=== PATIENT | male | born 1990 | race Caucasian/White ===

== ENCOUNTER 2017-02-18 16:33 | Emergency (ER) | payer BC ==
[2017-02-18] MEDS ORDERED: KETOROLAC 30 MG/ML VIAL IVP ONE (16:57)
[2017-02-18] MEDS ORDERED: 0.9 % SODIUM CHLORIDE 1,000 ML BAG IV ONE (16:57)
[2017-02-18] MEDS ORDERED: ONDANSETRON HCL IV 4 MG/2 ML VIAL IVP ONE (17:00)
[2017-02-18] MEDS ORDERED: MORPHINE SULFATE 5 MG/ML PFS IVP ONE (17:00)
--- NOTE | 2017-02-18 17:03 | Emergency Department Record ---
History of Present Illness - General Chief Complaint: Back Pain/Injury Stated Complaint: BACK PAIN Time Seen by Provider: 02/18/17 16:56 Source: Patient Mode of Arrival: Ambulatory Limitations: No limitations - History of Present Illness Initial Comments: 26 yo male presents with right flank pain that is sharp. The pain started today. He has mild nausea. No fever. the pain started in the high right back and now radiates down toward the testicles. The testicles are not tender or swollen. No hematuria. No diarrhea. He is unable to find a position of comfort. The pain feels more internal. He denies a history of the same in the past. No other recent medical concerns. MD Complaint: Back pain Onset/Timin -: Month(s) Similar Symptoms Previously: Yes Place: Home Radiation: Groin Severity: Moderate Severity scale (1-10): 10 Quality: Sharp, Stabbing Consistency: Constant Improves With: None Worsens With: None Associated Symptoms: Denies other symptoms - Related Data Home Medications Medication Instructions Recorded Confirmed Last Taken No Home Med [NO HOME MEDS] 02/18/17 02/18/17 Unknown Allergies Allergy/AdvReac Type Severity Reaction Status Date / Time Unable to Assess Allergy Unverified 02/18/17 16:45 Travel Screening - Travel/Exposure Within Last 30 Days Have you traveled within the last 30 days?: No - Travel/Exposure Within Last Year Have you traveled outside the [place] in the last year?: No - Additonal Travel Details Have you been exposed to anyone with a communicable illness?: No - Travel Symptoms Symptom Screening: None Review of Systems Constitutional: Denies: Chills, Fever, Malaise, Weakness Eyes: Denies: Eye discharge ENT: Denies: Congestion, Throat pain Respiratory: Denies: Cough, Dyspnea, Hemoptysis, Stridor, Wheezes Cardiovascular: Denies: Chest pain, Syncope Endocrine: Denies: Fatigue Gastrointestinal: Reports: As per HPI, Abdominal pain, Nausea. Denies: Diarrhea , Hematemesis, Hematochezia, Melena, Vomiting Genitourinary: Reports: Testicular pain. Denies: Dysuria, Frequency, Hematuria , Incontinence, Testicular mass, Urgency Musculoskeletal: Reports: Back pain. Denies: Arthralgia, Joint swelling, Myalgia, Neck pain Skin: Denies: Bruising, Change in color, Rash Neurological: Denies: Confusion, Headache Psychiatric: Denies: Anxiety Hematological/Lymphatic: Denies: Easy bleeding, Easy bruising, Swollen glands Past Medical History - SOCIAL HISTORY Smoking Status: Never smoker Alcohol Use: Rare Drug Use: Occassional Drug Use Detail:: Marijuana - RESPIRATORY Hx Respiratory Disorders: Yes Hx Pneumonia: Yes - CARDIOVASCULAR Hx Cardio Disorders: No - NEURO Hx Neuro Disorders: No - GI Hx GI Disorders: No - Hx Genitourinary Disorders: No - ENDOCRINE Hx Endocrine Disorders: No - MUSCULOSKELETAL Hx Musculoskeletal Disorders: No - PSYCH Hx Psych Problems: No - HEMATOLOGY/ONCOLOGY Hx Hematology/Oncology Disorders: No Family Medical History Any Significant Family History?: No Physical Exam - General General Appearance: Alert, Oriented x3, Cooperative, No acute distress, Anxious Limitations: No limitations - Head Head exam: Normal inspection - Eye Eye exam: Normal appearance - ENT ENT exam: Normal exam Ear exam: Normal external inspection Nasal Exam: Normal inspection Mouth exam: Normal external inspection - Neck Neck exam: Normal inspection - Respiratory Respiratory exam: Normal lung sounds bilaterally. negative: Respiratory distress - Cardiovascular Cardiovascular Exam: Regular rate, Normal rhythm, Normal heart sounds - GI/Abdominal GI/Abdominal exam: Soft, Normal bowel sounds. negative: Distended, Guarding, Hernia, Mass, Rebound, Rigid, Tenderness - Rectal Rectal exam: Deferred - exam: Normal inspection. negative: Scrotal swelling, Testicular tenderness, Urethral discharge - Extremities Extremities exam: Normal inspection, Full ROM, Normal capillary refill. negative: Tenderness - Back Back exam: Reports: Normal inspection, Full ROM. Denies: CVA tenderness (R), Muscle spasm, Paraspinal tenderness, Rash noted, Tenderness, Vertebral tenderness - Neurological Neurological exam: Alert, Normal gait, Oriented X3, Reflexes normal - Psychiatric Psychiatric exam: Normal affect, Normal mood - Skin Skin exam: Dry, Intact, Normal color, Warm Course Vital Signs 02/18/17 16:46 Temperature 97.4 F L Pulse Rate 89 Respiratory 22 Rate Blood Pressure 173/118 Pulse Ox 98 - Reevaluation(s) Reevaluation #1: The WBC count is [address] table is rated for 450 pounds. They are unable to perform a CT on this patient. [facility] ED 02/18/17 17:41 Reevaluation #2: 02/18/17 17:48 No acute changes on the CMP. WBC count 16. Reevaluation #3: Dr Cherry accepts the patient at [facility] as she confirmed CT scanner capacity of 600 The patient has controlled pain He was offered EMS transfer but requests transfer by private auto He is stable for private car transfer to [facility] ED 02/18/17 17:53 Reevaluation #4: UA report received N and LE + with 16-20 WBC, ositive epithelials and blood The patient's dad in ED for transport He was updated on plan and agrees to go directly to [facility] 02/18/17 18:09 Reevaluation #5: I called the UA results to Vashti Freeman RN to provide to the accepting physician. 02/18/17 18:18 Medical Decision Making - Lab Data Result diagrams: 02/18/17 17:15 02/18/17 17:15 Disposition Disposition: Transfer Clinical Impression: Flank pain Disposition: Acute Care Hospital Transfer Transfer To: [facility] Reason For Transfer: CT scan limit 450. Pt exceeds limit Accepting Physician: Dilip Time Discussed w/Accepting Physician: 17:49 Condition: (2) Stable Additional Instructions: Go directly to the [facility] emergency department to further test for your right sided pain. You will need future blood pressure rechecks as it was elevated in the ER today Forms: Patient Portal Access Time of Disposition: 17:49 Quality - Quality Measures Quality Measures: N/A - Blood Pressure Screening View Details: Yes Blood Pressure Classification: Hypertensive Reading Systolic Measurement: 173 Diastolic Measurement: 118 Screening for High Blood Pressure: < First Hypertensive BP, F/U Documented > [ [id number]] First Hypertensive Follow-up Interventions: Follow-up with rescreen GT 1 day and LT 4 weeks.
[2017-02-18 17:26] LABS: BASO % 0.3 % (0-6); EOS % 1.5 % (0-6); GRAN % 74.4 % (47-80); HEMATOCRIT 44.1 % (42.0-52.0); HEMOGLOBIN 14.7 gm/dl (14.0-18.0); LYMPH % 15.9 % (16-45); MEAN CELL VOLUME 84.3 fl (81-97); MEAN CORPUSCULAR HEMOGLOBIN 28.1 pg (27-33); MEAN CORPUSCULAR HGB CONC 33.3 g/dl (32-36); MONO % 7.9 % (0-9); PLATELET COUNT 423 K/uL (130-400); RED BLOOD COUNT 5.23 M/uL (4.40-5.70); RED CELL DISTRIBUTION WIDTH 14.1 % (11.5-14.5); WHITE BLOOD COUNT W/O DIFF 16.1 K/uL (4.2-12.2)
[2017-02-18 17:39] LABS: ALBUMIN 4.4 gm/dL (3.5-5.0); ALKALINE PHOSPHATASE 88 U/L (38-126); ALT/SGPT 49 U/L (21-72); AST/SGOT 25 U/L (17-59); BILIRUBIN,TOTAL 0.79 mg/dL (0.2-1.3); BLOOD UREA NITROGEN 14 mg/dL (9-20); EST GLOMERULAR FILTRATION RATE > 60 ml/min; GLUCOSE,RANDOM 135 mg/dL (70-110); LIPASE 44 U/L (23-300); TOTAL PROTEIN 8.5 gm/dL (6.3-8.2)
[2017-02-18 17:56] LABS: URINE APPEARANCE SL CLOUDY; URINE BILIRUBIN NEGATIVE (NEGATIVE); URINE BLOOD TRACE-I (NEGATIVE); URINE COLOR YELLOW; URINE GLUCOSE (UA) NEGATIVE (NEGATIVE); URINE KETONE NEGATIVE (NEGATIVE); URINE LEUKOCYTE ESTERASE MODERATE (NEGATIVE); URINE NITRITE POSITIVE (NEGATIVE); URINE PROTEIN TRACE (NEGATIVE)
[2017-02-18 18:02] LABS: URINE BACTERIA 2+; URINE EPITHELIAL CELLS 16 - 20 (FEW)
== END 2017-02-18 18:13 | disposition short-term general hospital (02) ==
LOC: ER 16:33
DX: R10.31 Right lower quadrant pain (principal); M54.5 Low back pain; M54.6 Pain in thoracic spine; R11.0 Nausea; R31.29 Other microscopic hematuria; R03.0 Elevated blood-pressure reading, without diagnosis of hypertension; E66.01 Morbid (severe) obesity due to excess calories
CPT/HCPCS: 99284 ×2; 96374; 96375; 83690; 85025; 80076; 80048; 81001; J1885; J2405; J2270; J7030